=== PATIENT | male | born 1980 | race Caucasian/White ===

== ENCOUNTER → 2019-04-14 | Outpatient (CLI) | payer BC ==
[~2019-04-14] MED LIST: VITCB500GO PO
== END ==
LOC: HYPER 04-01 16:27
DX: T81.89XA Other complications of procedures, not elsewhere classified, initial encounter (principal); L05.01 Pilonidal cyst with abscess; Y92.89 Other specified places as the place of occurrence of the external cause; Y83.8 Other surgical procedures as the cause of abnormal reaction of the patient, or of later complication, without mention of misadventure at the time of the procedure

== ENCOUNTER → 2019-04-21 | Outpatient (CLI) | payer BC | LOC: HYPER 06:58 | DX: T81.89XD Other complications of procedures, not elsewhere classified, subsequent encounter (principal); L05.01 Pilonidal cyst with abscess; Y83.8 Other surgical procedures as the cause of abnormal reaction of the patient, or of later complication, without mention of misadventure at the time of the procedure ==

== ENCOUNTER → 2019-05-06 | Outpatient (CLI) | payer BC | LOC: HYPER 07:33 | DX: T81.89XD Other complications of procedures, not elsewhere classified, subsequent encounter (principal); L05.01 Pilonidal cyst with abscess; Y83.8 Other surgical procedures as the cause of abnormal reaction of the patient, or of later complication, without mention of misadventure at the time of the procedure ==

== ENCOUNTER → 2019-05-24 | Outpatient (CLI) | payer BC | LOC: HYPER 14:45 | DX: T81.89XD Other complications of procedures, not elsewhere classified, subsequent encounter (principal); L05.01 Pilonidal cyst with abscess; Y83.8 Other surgical procedures as the cause of abnormal reaction of the patient, or of later complication, without mention of misadventure at the time of the procedure ==